=== PATIENT | female | born 1985 | race Caucasian/White ===

== ENCOUNTER 2016-06-02 13:08 | Emergency (ER) | payer OTHER, SELFPAY ==
--- NOTE | 2016-06-02 13:32 | ERPHSYRPT ---
- History of Present Illness Time Seen by Provider: 06/02/16 13:12 Source: patient Patient Subjective Stated Complaint: PT STATES THAT SHE THINKS HER LEFT LOWER WISDOM TOOTH IS COMING IN-REPROTS PAIN-REPORTS FEVER OF 100 YESTERDAY Triage Nursing Assessment: PT PINK WARM ET DRY-NO SWELLING OR REDNESS NOTED- DENTAL CARRIES NOTED-PT STATES SHE IS GETTING HER TEETH PULLED NEXT WEEK Physician History: CC: toothache Hx: 30 y/o patient with toothaches. She states she has not been on recent pain medication. She has left lower jaw wisdom tooth pain. She states she got Rx for pcn Thursday but stopped it because it did not help. She has APAP and motrin. No fever. States not . Scheduled to have full mouth dental extractions neck week at [facility]. Allergies/Adverse Reactions: Sulfa (Sulfonamide Antibiotics) Allergy (Intermediate, Verified 06/02/16 13:16) Swelling meperidine [From Demerol] Allergy (Verified 06/02/16 13:16) toradol Adverse Reaction (Uncoded 06/02/16 13:16) Home Medications: No Home Meds 1 ea MC UD 06/02/16 [History] Hx Tetanus, Diphtheria Vaccination/Date Given: Yes Hx Influenza Vaccination/Date Given: No Hx Pneumococcal Vaccination/Date Given: No Immunizations Up to Date: Yes - Review of Systems Constitutional: No Fever Ears, Nose, & Throat: Mouth Pain Respiratory: No Dyspnea Abdominal/Gastrointestinal: No Vomiting Skin: No Rash - Past Medical History Pertinent Past Medical History: Yes Neurological History: No Pertinent History ENT History: No Pertinent History Cardiac History: Hypertension Respiratory History: No Pertinent History Endocrine Medical History: No Pertinent History Musculoskeletal History: Other GI Medical History: No Pertinent History History: No Pertinent History Psycho-Social History: No Pertinent History Female Reproductive Disorders: No Pertinent History Other Medical History: intermittent Sciatic pain - Past Surgical History Past Surgical History: Yes Neuro Surgical History: No Pertinent History Cardiac: No Pertinent History Respiratory: No Pertinent History Gastrointestinal: Cholecystectomy Genitourinary: No Pertinent History Musculoskeletal: No Pertinent History Female Surgical History: No Pertinent History Other Surgical History: pt states pain worsened after gallbladder out - Social History Smoking Status: Former smoker How long have you smoked: 20 yrs Exposure to second hand smoke: Yes Drug Use: none Patient Lives Alone: No Significant Family History: no pertinent family hx - Female History Hx Last Menstrual Period: MAY 08 2016 Hx Now: No - Nursing Vital Signs Nursing Vital Signs: Initial Vital Signs Temperature 97.8 F Temperature Source Oral Pulse Rate 88 Respiratory Rate 22 Blood Pressure [Right Arm] 161/108 Pain Intensity 8 - Physical Exam General Appearance: alert Eye Exam: bilateral eye: PERRL, EOMI Throat Exam: pharynx normal Neck Exam: normal inspection, non-tender, supple Cardiovascular/Respiratory Exam: normal breath sounds, regular rate/rhythm Neurologic Exam: alert, oriented x 3, cooperative Skin Exam: warm, dry, No rash SpO2 Interpretation: normal SpO2: 100 Oxygen Delivery: Room Air Comments: Mouth: multiple tooth decay in various stages. Many teeth down to root tips. No large abscess. No trismus. No facial cellulitis. - Course Nursing assessment & vital signs reviewed: Yes - Progress Progress Note: 06/02/16 13:31 Pt denies any recent pain medications. She had dental appt scheduled. She is allergic to toradol. INSPECT reviewed and she has multiple opioids Rx from ER in past month of which she forgot to mention. The last was tramadol on 05-31. Explained to pt we can not refill opioids and she needs to follow up with the dentist. She declines APAP, vistaril, toradol here. Advised she take the pcn regularly and follow up with dentist. Counseled pt/family regarding: diagnosis, need for follow-up - Departure Time of Disposition: 13:32 Departure Disposition: Home Clinical Impression: Drug-seeking behavior, Toothache Condition: Stable Critical Care Time: No Referrals: DOCTOR,NO FAMILY [NON-STAFF PHY W/O PRIVILEGES] - Instructions: Tooth Decay Additional Instructions: Your blood pressure was elevated and you need to follow up with family doctor for recheck. Take your pcn as already prescribed. Call the dentist to arrange close follow up and further care. Take ibuprofen 600mg every 6 hours or tylenol 650mg every 6 hours as needed for pain.
[2016-06-02 13:39] VITALS: BP 160/100; PULSE 80; O2SAT 96
== END 2016-06-02 13:38 | disposition home or self-care (01) ==
LOC: ED 13:08
DX: Z76.5 Malingerer [conscious simulation] (principal); K08.89 Other specified disorders of teeth and supporting structures
CPT/HCPCS: 99281

== ENCOUNTER 2016-10-13 18:45 | Emergency (ER) | payer OTHER ==
[2016-10-13] MEDS ORDERED: Hydromorphone 1 mg/ml Ampule IV ONE ×2 (19:25→20:39)
[2016-10-13] MEDS ORDERED: Sodium Chloride 0.9% 1000 ML 1,000 ML IV STA (19:25)
[2016-10-13] MEDS ORDERED: Phenergan 25 MG INJ IV ONE (19:25)
--- NOTE | 2016-10-13 19:28 | ERPHSYRPT ---
- History of Present Illness Time Seen by Provider: 10/13/16 19:09 Historian: patient Exam Limitations: no limitations Patient Subjective Stated Complaint: abd pain started today, pain to center of abd nonradiating, nausea and vomiting x4, loose stools less than 10, no fever, Triage Nursing Assessment: pt walked in, resp easy, skin w/d pink , abd soft, alert Physician History: FOR THE PAST 7 HOURS PT HAS HAD CONSTANT SHARP/CRAMPY MID ABDOMINAL PAIN WITH CHILLS, DIARRHEA X8, NAUSEA AND VOMITING X3 WITHOUT BLOOD; FOR THE PAST 2 HOURS PT HAS HAD A FRONTAL HEADACHE. PT DENIES CHEST PAIN, SHORTNESS OF AIR, FEVER. PT DENIES ANY FOOD INTAKE TODAY. Allergies/Adverse Reactions: Sulfa (Sulfonamide Antibiotics) Allergy (Intermediate, Verified 10/13/16 19:14) Swelling meperidine [From Demerol] Allergy (Verified 10/13/16 19:14) toradol Adverse Reaction (Uncoded 10/13/16 19:14) Home Medications: No Home Meds [No Home Meds] 1 ea UD 06/02/16 [History] Hx Tetanus, Diphtheria Vaccination/Date Given: No Hx Influenza Vaccination/Date Given: No Hx Pneumococcal Vaccination/Date Given: No Immunizations Up to Date: Yes - Review of Systems Constitutional: Chills, No Fever Respiratory: No Dyspnea Cardiac: No Chest Pain Abdominal/Gastrointestinal: Abdominal Pain, Nausea, Vomiting, Diarrhea Neurological: Headache All Other Systems: Reviewed and Negative - Past Medical History Pertinent Past Medical History: Yes Neurological History: No Pertinent History ENT History: No Pertinent History Cardiac History: Hypertension Respiratory History: No Pertinent History Endocrine Medical History: No Pertinent History Musculoskeletal History: Other GI Medical History: No Pertinent History History: No Pertinent History Psycho-Social History: No Pertinent History Female Reproductive Disorders: No Pertinent History Other Medical History: intermittent Sciatic pain - Past Surgical History Past Surgical History: Yes Neuro Surgical History: No Pertinent History Cardiac: No Pertinent History Respiratory: No Pertinent History Gastrointestinal: Cholecystectomy Genitourinary: No Pertinent History Musculoskeletal: No Pertinent History Female Surgical History: No Pertinent History Other Surgical History: pt states pain worsened after gallbladder out - Social History Smoking Status: Never smoker How long have you smoked: 20 yrs Exposure to second hand smoke: Yes Drug Use: none Patient Lives Alone: No Significant Family History: no pertinent family hx - Female History Hx Last Menstrual Period: thursday Hx Now: No - Nursing Vital Signs Nursing Vital Signs: Initial Vital Signs Temperature 80 F 10/13/16 19:07 Pulse Rate 80 10/13/16 19:07 Respiratory Rate 20 10/13/16 19:07 Blood Pressure 115/74 10/13/16 19:07 O2 Sat by Pulse Oximetry 97 10/13/16 19:07 Pain Scale Pain Intensity 7 - Physical Exam General Appearance: alert Eye Exam: PERRL/EOMI Ears, Nose, Throat Exam: dry mucous membranes Neck Exam: normal inspection Respiratory Exam: lungs clear Cardiovascular Exam: normal heart sounds Gastrointestinal/Abdomen Exam: soft, tenderness (MILD MID ABDOMINAL TENDERNESS) , other (B.S. MILDLY HYPERACTIVE AND NORMOTONIC), No guarding Back Exam: normal range of motion Extremity Exam: normal inspection, No pedal edema Neurologic Exam: alert, cooperative Skin Exam: warm, dry SpO2 Interpretation: normal SpO2: 97 Oxygen Delivery: Room Air - Course Nursing assessment & vital signs reviewed: Yes - CT Exams Abdomen/Pelvis CT Interpretation: Discussed w/radiologist (COMPARED TO 10/25/13 NEW 3MM NONOBSTRUCTING LEFT RENAL STONE. NORMAL APPENDIX. TINY CUL-DE-SAC FLUID PRESUMED FROM RUPTURED/LEAKING CYST. 14 CM SPLENOMEGALY. MILD JEJUNUM WALL THICKENING, POSSIBLY ENTERITIS. REMAINING ABD/PEL NEGATIVE.) Ordered Tests: Active Orders 24 hr Category Date Time Status Clean Catch Urine Specimen STAT Care 10/13/16 19:25 Active IV Insertion STAT Care 10/13/16 19:25 Active ABDOMEN AND PELVIS W/0 CONTRAS [CT] Stat Exams 10/13/16 19:26 Taken AMYLASE Stat Lab 10/13/16 19:30 Completed BLOOD CULTURE Stat Lab 10/13/16 20:36 Ordered CBC W DIFF Stat Lab 10/13/16 19:30 Completed CMP Stat Lab 10/13/16 19:30 Completed CULTURE,URINE Stat Lab 10/13/16 19:30 Received HCG QUALITATIVE,SERUM Stat Lab 10/13/16 19:30 Completed LIPASE Stat Lab 10/13/16 19:30 Completed MAG [MAGNESIUM] Stat Lab 10/13/16 19:30 Completed UA W/ MICROSCOPIC Stat Lab 10/13/16 19:30 Completed Urine Triage Profile Stat Lab 10/13/16 19:30 Completed Medication Summary Discontinued Medications Generic Name Dose Route Start Last Admin Trade Name Freq PRN Reason Stop Dose Admin Hydromorphone HCl 1 mg 10/13/16 19:25 10/13/16 19:37 Hydromorphone 1 Mg/Ml Ampule IV 10/13/16 19:26 1 mg STAT ONE Administration Hydromorphone HCl Confirm 10/13/16 19:31 Hydromorphone 1 Mg/Ml Ampule Administered 10/13/16 19:32 Dose 1 mg .ROUTE .STK-MED ONE Sodium Chloride 1,000 mls @ 999 mls/hr 10/13/16 19:25 10/13/16 19:34 Sodium Chloride 0.9% 1000 Ml IV 10/13/16 20:25 999 mls/hr .Q1H1M STA Administration Sodium Chloride Confirm 10/13/16 19:31 Sodium Chloride 0.9% 1000 Ml Administered 10/13/16 19:32 Dose 1,000 mls @ ud .ROUTE .STK-MED ONE Promethazine HCl 12.5 mg 10/13/16 19:25 10/13/16 19:35 Phenergan 25 Mg Inj IV 10/13/16 19:26 12.5 mg STAT ONE Administration Promethazine HCl Confirm 10/13/16 19:30 Phenergan 25 Mg Inj Administered 10/13/16 19:31 Dose 25 mg .ROUTE .STK-MED ONE Lab/Rad Data: Laboratory Result Diagrams 10/13/16 19:30 10/13/16 19:30 Laboratory Results 10/13/16 10/13/16 10/13/16 Range/Units 19:30 19:30 19:30 WBC (4.0-10.5) K/mm3 RBC (4.1-5.4) M/mm3 Hgb (12.0-16.0) gm/dl Hct (35-47) % MCV (78-100) fl MCH (26-32) pg MCHC (32-36) g/dl RDW (11.5-14.0) % Plt Count (150-450) K/mm3 MPV (6-9.5) fl Gran % (36.0-66.0) % Lymphocytes % (24.0-44.0) % Monocytes % (0.0-12.0) % Eosinophils % (0.00-5.0) % Basophils % (0.0-0.4) % Basophils # (0-0.4) Sodium 140 (136-145) mEq/L Potassium 4.1 (3.5-5.1) mEq/L Chloride 103 (98-107) mEq/L Carbon Dioxide 25.4 (21-32) mEq/L Anion Gap 15.9 H (5-15) MEQ/L BUN 11 (9-20) mg/dL Creatinine 0.74 (0.55-1.30) mg/dl Estimated GFR > 60 ML/MIN Glucose 108 (70-110) MG/DL Calcium 9.7 (8.5-10.1) mg/dL Magnesium 2.3 (1.8-2.4) mg/dL Total Bilirubin 0.10 L (0.2-1.0) mg/dL AST 11 L (15-37) U/L ALT 18 (12-78) U/L Alkaline Phosphatase 133 H (46-116) U/L Serum Total Protein 9.0 H (6.4-8.2) gm/dL Albumin 4.4 (3.4-5.0) g/dL Amylase 49 (25-115) U/L Lipase 134 (73-393) U/L Serum , Qual NEGATIVE (Negative) Ur Collection Type Urine Color (YELLOW) Urine Appearance (CLEAR) Urine pH (5-6) Ur Specific [place] (1.005-1.025) Urine Protein (Negative) Urine Ketones (NEGATIVE) Urine Blood (0-5) [place]/ul Urine Nitrite (NEGATIVE) Urine Bilirubin (NEGATIVE) Urine Urobilinogen (0-1) mg/dL Ur Leukocyte Esterase (NEGATIVE) Urine Microscopic RBC (0-2) /HPF Urine Microscopic WBC (0-5) /HPF Ur Epithelial Cells (FEW) /HPF Amorphous Crystals (NEGATIVE) /HPF Urine Bacteria (NEGATIVE) /HPF Urine Glucose (NEGATIVE) mg/dL Urine Opiates Level (NEGATIVE) Ur Methadone (NEGATIVE) Urine Barbiturates (NEGATIVE) Ur Phencyclidine (PCP) (NEGATIVE) Urine Amphetamine (NEGATIVE) U Benzodiazepine Level (NEGATIVE) Urine Cocaine (NEGATIVE) Urine Marijuana (THC) (NEGATIVE) Specimen Received 10/13/16 10/13/16 10/13/16 Range/Units 19:30 19:30 19:30 WBC 14.0 H (4.0-10.5) K/mm3 RBC 4.32 (4.1-5.4) M/mm3 Hgb 11.4 L (12.0-16.0) gm/dl Hct 36.6 (35-47) % MCV 84.7 (78-100) fl MCH 26.3 (26-32) pg MCHC 31.1 L (32-36) g/dl RDW 16.4 H (11.5-14.0) % Plt Count 266 (150-450) K/mm3 MPV 11.7 H (6-9.5) fl Gran % 73.1 H (36.0-66.0) % Lymphocytes % 19.9 L (24.0-44.0) % Monocytes % 4.9 (0.0-12.0) % Eosinophils % 2.0 (0.00-5.0) % Basophils % 0.1 (0.0-0.4) % Basophils # 0.02 (0-0.4) Sodium (136-145) mEq/L Potassium (3.5-5.1) mEq/L Chloride (98-107) mEq/L Carbon Dioxide (21-32) mEq/L Anion Gap (5-15) MEQ/L BUN (9-20) mg/dL Creatinine (0.55-1.30) mg/dl Estimated GFR ML/MIN Glucose (70-110) MG/DL Calcium (8.5-10.1) mg/dL Magnesium (1.8-2.4) mg/dL Total Bilirubin (0.2-1.0) mg/dL AST (15-37) U/L ALT (12-78) U/L Alkaline Phosphatase (46-116) U/L Serum Total Protein (6.4-8.2) gm/dL Albumin (3.4-5.0) g/dL Amylase (25-115) U/L Lipase (73-393) U/L Serum , Qual (Negative) Ur Collection Type CLEAN CATCH Urine Color YELLOW (YELLOW) Urine Appearance CLOUDY (CLEAR) Urine pH 7.0 (5-6) Ur Specific [place] 1.010 (1.005-1.025) Urine Protein TRACE (Negative) Urine Ketones NEGATIVE (NEGATIVE) Urine Blood NEGATIVE (0-5) [place]/ul Urine Nitrite NEGATIVE (NEGATIVE) Urine Bilirubin NEGATIVE (NEGATIVE) Urine Urobilinogen NORMAL (0-1) mg/dL Ur Leukocyte Esterase 1+ (NEGATIVE) Urine Microscopic RBC 0-2 (0-2) /HPF Urine Microscopic WBC 5-10 (0-5) /HPF Ur Epithelial Cells MODERATE (FEW) /HPF Amorphous Crystals MODERATE (NEGATIVE) /HPF Urine Bacteria FEW (NEGATIVE) /HPF Urine Glucose NEGATIVE (NEGATIVE) mg/dL Urine Opiates Level NEG. (NEGATIVE) Ur Methadone NEG. (NEGATIVE) Urine Barbiturates NEG. (NEGATIVE) Ur Phencyclidine (PCP) NEG. (NEGATIVE) Urine Amphetamine NEG. (NEGATIVE) U Benzodiazepine Level NEG. (NEGATIVE) Urine Cocaine NEG. (NEGATIVE) Urine Marijuana (THC) NEG. (NEGATIVE) Specimen Received 10/13/161944 - Departure Time of Disposition: 20:38 Departure Disposition: Home Clinical Impression: ABDOMINAL PAIN, UTI, VOMITING, DIARRHEA, HTN Condition: Stable Critical Care Time: No Referrals: DOCTOR,NO FAMILY [Primary Care Provider] - Instructions: Abdominal Pain-Adult, Diarrhea and Traveler's Diarrhea -- Adult, Vomiting -- Adult, Urinary Tract Infection (UTI) Additional Instructions: FOLLOW UP WITH PRIVATE DOCTOR TOMORROW. Prescriptions: Ondansetron [Zofran Odt] 4 mg PO Q4H PRN PRN #14 tab.rapdis PRN Reason: Nausea/Vomiting Nitrofurantoin Macro 100 mg [Macrobid 100MG Capsule] 100 mg PO BID #20 capsule
[2016-10-13] MEDS ORDERED: Phenergan 25 MG INJ ONE (19:30)
[2016-10-13] MEDS ORDERED: Sodium Chloride 0.9% 1000 ML 1,000 ML ONE (19:31)
[2016-10-13] MEDS ORDERED: Hydromorphone 1 mg/ml Ampule ONE ×2 (19:31→20:43)
[2016-10-13 19:33] LABS: BASOPHIL % 0.1 % (0.0-0.4); Granulocytes % 73.1 % (36.0-66.0); Lymphocytes % 19.9 % (24.0-44.0); Mean Cell Volume 84.7 fl (78-100); Mean Platelet Volume 11.7 fl (6-9.5); Monocytes % 4.9 % (0.0-12.0); Platelet Count 266 K/mm3 (150-450); Red Blood Count 4.32 M/mm3 (4.1-5.4); Red Cell Distribution Width 16.4 % (11.5-14.0)
[2016-10-13 19:52] LABS: ALBUMIN 4.4 g/dL (3.4-5.0); ALKALINE PHOSPHATASE 133 U/L (46-116); ANION GAP 15.9 MEQ/L (5-15); BLOOD UREA NITROGEN 11 mg/dL (9-20); CHLORIDE 103 mEq/L (98-107); Carbon Dioxide 25.4 mEq/L (21-32); Glucose 108 MG/DL (70-110); LIPASE 134 U/L (73-393); Potassium 4.1 mEq/L (3.5-5.1); SGOT/AST 11 U/L (15-37); SGPT/ALT 18 U/L (12-78); SODIUM 140 mEq/L (136-145)
[2016-10-13 19:56] LABS: Mean Corpuscular Hemoglobin 26.3 pg (26-32)
[2016-10-13 20:32] LABS: Bilirubin NEGATIVE (NEGATIVE); Blood NEGATIVE Ery/ul (0-5); COMPLETE URINE MICROSCOPIC? YES; Collection Type CLEAN CATCH; Glucose NEGATIVE (NEGATIVE); Leukocyte Esterase 1+ (NEGATIVE)
[2016-10-13 20:33] LABS: ADD URINE CULTURE? YES (NO); Bacteria FEW /HPF (NEGATIVE); Epithelial Cells MODERATE /HPF (FEW)
[2016-10-13] MEDS ORDERED: ROCEPHIN 1 Gm-D5w 50 ml Bag** 1 G/50 ML IVPB IV STA (20:36)
[2016-10-13] MEDS ORDERED: Zofran 4 MG/2 ML VIAL IV ONE (20:39)
[2016-10-13] MEDS ORDERED: ROCEPHIN 1 Gm-D5w 50 ml Bag** 1 G/50 ML IVPB IV ONE (20:40)
[2016-10-13] MEDS ORDERED: Zofran 4 MG/2 ML VIAL ONE (20:43)
[2016-10-13 21:40] VITALS: BP 132/72; PULSE 80; O2SAT 98
--- NOTE | 2016-10-14 08:36 | XRAY ---
Indication: Mid abdominal pain. Multiple contiguous axial images obtained through the abdomen and pelvis without contrast as ordered. Comparison: October 25, 2013. Lung bases demonstrates minimal bibasilar dependent atelectasis. Heart is not enlarged. Stomach is mildly distended with food/fluid. Noncontrasted bowel loops appear nonobstructed. Left mid abdomen jejunal bowel loops now mildly fluid distended with wall thickening possibly enteritis. Normal appendix. Tiny cul-de-sac fluid presumed from ruptured/leaking cyst. Spleen remains enlarged measuring 14 cm in greatest axial dimension. There is a 3-4 mm nonobstructing left renal micro-calculus. Again previous cholecystectomy. Remaining liver, pancreas, spleen, adrenal glands, kidneys, ureters, bladder, uterus, and aorta appear unremarkable for noncontrast exam. Osseous structures intact. Impression: 1. Jejunal bowel wall thickening. Rule out enteritis. 2. Nonobstructing left renal micro-calculus. 3. Tiny cul-de-sac fluid presumed from ruptured/leaking cyst. 4. Splenomegaly. CT DI 20.11
== END 2016-10-13 21:40 | disposition home or self-care (01) ==
LOC: ED 18:45
DX: R10.9 Unspecified abdominal pain (principal); N39.0 Urinary tract infection, site not specified; R11.10 Vomiting, unspecified; R11.2 Nausea with vomiting, unspecified; R19.7 Diarrhea, unspecified; I10 Essential (primary) hypertension
CPT/HCPCS: 36000; 36415; 74176; 80053; 80307; 81000; 82150; 83690; 83735; 84703; 85025; 87040; 87086; 96374; 96375; 96376; 99283; 99284; J0696; J1170; J2405; J2550

== ENCOUNTER 2017-09-14 10:04 | Emergency (ER) | payer OTHER ==
[2017-09-14] MEDS ORDERED: Sodium Chloride 0.9% 1000 ML 1,000 ML IV STA (10:26)
[2017-09-14] MEDS ORDERED: Sodium Chloride 0.9% 1000 ML 1,000 ML ONE (10:29)
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
[2017-09-14 11:01] LABS: BASOPHIL % 0.1 % (0.0-0.4); Basophil (Absolute #) 0.01 (0-0.4); Eosinophil % 3.2 % (0.00-5.0); Eosinophil (Absolute #) 0.26 (0-0.5); Granulocyte Absolute (ANC) 5.82 (1.4-6.9); Granulocytes % 71.7 % (36.0-66.0); Hematocrit 32.6 % (35-47); Hemoglobin 10.2 gm/dl (12.0-16.0); Lymphocyte (Absolute #) 1.51 (1.0-4.6); Lymphocytes % 18.6 % (24.0-44.0); Mean Cell Volume 80.7 fl (78-100); Mean Corpuscular Hemoglobin 25.2 pg (26-32); Mean Corpuscular Hgb Concent. 31.3 g/dl (32-36); Mean Platelet Volume 11.9 fl (6-9.5); Monocyte (Absolute #) 0.52 (0.0-1.3); Monocytes % 6.4 % (0.0-12.0); Platelet Count 228 K/mm3 (150-450); Red Blood Count 4.04 M/mm3 (4.1-5.4); Red Cell Distribution Width 17.1 % (11.5-14.0); White Blood Count 8.1 K/mm3 (4.0-10.5)
[2017-09-14 11:13] LABS: ALBUMIN 4.7 g/dL (3.5-5.0); ALKALINE PHOSPHATASE 136 U/L (38-126); ANION GAP 19.9 MEQ/L (5-15); BLOOD UREA NITROGEN 15 mg/dL (7-17); CHLORIDE 108 mmol/L (98-107); Calcium 9.3 mg/dL (8.4-10.2); Carbon Dioxide 20 mmol/L (22-30); Creatinine 1 0.52 mg/dL (0.52-1.04); Glucose 108 mg/dL (74-106); Potassium 3.9 mmol/L (3.5-5.1); SGOT/AST 22 U/L (14-36); SGPT/ALT 17 U/L (0-35); SODIUM 144 mmol/L (137-145); Total Protein 8.3 g/dL (6.3-8.2)
[2017-09-14 11:45] VITALS: BP 155/108; PULSE 99; O2SAT 99
== END 2017-09-14 11:51 | disposition home or self-care (01) ==
LOC: ED 10:04
DX: F41.9 Anxiety disorder, unspecified (principal); R06.4 Hyperventilation; M79.602 Pain in left arm; R00.2 Palpitations
CPT/HCPCS: 36000; 36415; 80053; 83735; 84484; 84703; 85025; 93005; 93041; 96360; 99284

== ENCOUNTER 2017-11-17 23:54 | Emergency (ER) | payer OTHER ==
--- NOTE | 2017-11-18 00:17 | ERPHSYRPT ---
- History of Present Illness Source: patient Exam Limitations: no limitations Patient Subjective Stated Complaint: Patient stated she got into the shower and noticed pus oozing out of every poor in her body. Upon assessment no open areas or pus noted from anywhere on patient's body. Triage Nursing Assessment: Patient brought back to ER via W/C. Patient stated she got into the shower and noticed pus oozing out of every poor in her body. Upon assessment no open areas or pus noted from anywhere on patient's body. Patient's constantly moving and scratching at self. Patient denies pain or discomfort. Timing/Duration: hour(s) (0.5) Severity of Symptoms-Max: severe Severity of Symptoms-Current: severe Suicidal thoughts: other (denies) Associated Symptoms: denies symptoms Previous symptoms: no prior history Hx Tetanus, Diphtheria Vaccination/Date Given: Yes Hx Influenza Vaccination/Date Given: No Hx Pneumococcal Vaccination/Date Given: No Immunizations Up to Date: Yes <MARI PATIÑO - Last Filed: 11/18/17 07:02> <MICKEY HOLCOMB - Last Filed: 11/18/17 10:07> - History of Present Illness Time Seen by Provider: 11/18/17 00:08 Physician History: Pt states, she noticed oozing skin lesions all over her body after stepping out of shower about half hour ago. She denies any pain, fever, injury, vomiting or other complaints. (MARI PATIÑO) Allergies/Adverse Reactions: Sulfa (Sulfonamide Antibiotics) Allergy (Intermediate, Verified 11/18/17 00:10) Swelling meperidine [From Demerol] Allergy (Verified 11/18/17 00:10) toradol Adverse Reaction (Intermediate, Uncoded 11/18/17 00:10) Home Medications: Buprenorphine HCl/Naloxone HCl [Suboxone 8 mg-2 mg Tablet Sl] 1 each SL DAILY [History] Diphenhydramine HCl [Benadryl] 25 mg PO BID 09/14/17 [History] - Past Medical History Pertinent Past Medical History: Yes Neurological History: No Pertinent History ENT History: No Pertinent History Cardiac History: Hypertension Respiratory History: No Pertinent History Endocrine Medical History: No Pertinent History Musculoskeletal History: Other GI Medical History: No Pertinent History History: No Pertinent History Psycho-Social History: Anxiety Female Reproductive Disorders: No Pertinent History Other Medical History: intermittent Sciatic pain - Past Surgical History Past Surgical History: Yes Neuro Surgical History: No Pertinent History Cardiac: No Pertinent History Respiratory: No Pertinent History Gastrointestinal: Cholecystectomy Genitourinary: No Pertinent History Musculoskeletal: No Pertinent History Female Surgical History: No Pertinent History Other Surgical History: pt states pain worsened after gallbladder out - Social History Smoking Status: Current every day smoker How long have you smoked: 1 Exposure to second hand smoke: Yes Drug Use: none Patient Lives Alone: No Significant Family History: no pertinent family hx - Female History Hx Last Menstrual Period: 10/20/17 Hx Now: No <MARI PATIÑO Filed: 11/18/17 07:02> - Review of Systems Constitutional: No Symptoms Skin: Pruritis, Other (skin lesions) All Other Systems: Reviewed and Negative <MARI PTAIÑO Filed: 11/18/17 07:02> - Physical Exam General Appearance: no apparent distress Eyes, Ears, Nose, Throat Exam: normal ENT inspection, moist mucous membranes Neck Exam: normal inspection, non-tender, supple, No JVD Respiratory Exam: normal breath sounds, lungs clear, airway intact, No chest tenderness, No respiratory distress Cardiovascular Exam: regular rate/rhythm, normal heart sounds, normal peripheral pulses, No murmur Gastrointestinal/Abdominal Exam: soft, normal bowel sounds, No tenderness Extremities Exam: normal inspection Neurological Exam: alert, calm, oriented x 3 Appearance: appropriate appearance, impaired insight Behavior/Eye Contact/Speech: alert & cooperative, normal speech Thoughts/Hallucinations: tactile hallucinations Skin Exam: normal color, warm, dry, other (there is one solitary 1-1.5 cm superficial ulcerated skin lesion under the right breast, no erythema, no abscess, purulent discharge, blisters or other lesions seen.), No rash, No petechiae SpO2 Interpretation: normal SpO2: 100 Oxygen Delivery: Room Air <MARI PATIÑO Filed: 11/18/17 07:02> - Nursing Vital Signs Nursing Vital Signs: Initial Vital Signs Temperature 99.2 F 11/18/17 00:00 Pulse Rate 126 H 11/18/17 00:00 Respiratory Rate 22 11/18/17 00:00 Blood Pressure 144/107 11/18/17 00:00 O2 Sat by Pulse Oximetry 100 11/18/17 00:00 Pain Scale Pain Intensity 0 - Course Nursing assessment & vital signs reviewed: Yes EKG Interpreted by Me: RATE (114/min), Sinus Tach, Left Calera Deviation, Non- specific ST Changes <MARI PATIÑO - Last Filed: 11/18/17 07:02> Ordered Tests: Active Orders 24 hr Category Date Time Status EKG-ER Only STAT Care 11/18/17 00:11 Active Regular Diet Diet 11/18/17 Lunch Active ACETAMINOPHEN Stat Lab 11/18/17 00:45 Completed CBC W DIFF Stat Lab 11/18/17 00:45 Completed CMP Stat Lab 11/18/17 00:45 Completed CULTURE,URINE Stat Lab 11/18/17 02:11 Received ETHYL ALCOHOL Stat Lab 11/18/17 00:45 Completed HCG QUALITATIVE,SERUM Stat Lab 11/18/17 00:45 Completed PROTIME WITH INR Stat Lab 11/18/17 00:45 Completed SALICYLATE Stat Lab 11/18/17 00:45 Completed TSH [TSH, 3RD Generation] Stat Lab 11/18/17 00:45 Completed UA W/RFX UR CULTURE Stat Lab 11/18/17 02:11 Completed Urine Triage Profile Stat Lab 11/18/17 02:11 Completed Medication Summary Discontinued Medications Generic Name Dose Route Start Last Admin Trade Name Freq PRN Reason Stop Dose Admin Cephalexin HCl 500 mg 11/18/17 03:12 11/18/17 03:19 Keflex 500 Mg PO 11/18/17 03:13 500 mg STAT ONE Administration Cephalexin HCl Confirm 11/18/17 03:18 Keflex 500 Mg Administered 11/18/17 03:19 Dose 500 mg .ROUTE .STK-MED ONE Lab/Rad Data: Laboratory Result Diagrams 11/18/17 00:45 11/18/17 00:45 Laboratory Results 11/18/17 11/18/17 11/18/17 Range/Units 02:11 02:11 00:45 WBC (4.0-10.5) K/mm3 RBC (4.1-5.4) M/mm3 Hgb (12.0-16.0) gm/dl Hct (35-47) % MCV (78-100) fl MCH (26-32) pg MCHC (32-36) g/dl RDW (11.5-14.0) % Plt Count (150-450) K/mm3 MPV (6-9.5) fl Gran % (36.0-66.0) % Eos # (Auto) (0-0.5) Absolute Lymphs (auto) (1.0-4.6) Absolute Monos (auto) (0.0-1.3) Lymphocytes % (24.0-44.0) % Monocytes % (0.0-12.0) % Eosinophils % (0.00-5.0) % Basophils % (0.0-0.4) % Absolute Granulocytes (1.4-6.9) Basophils # (0-0.4) PT (9.95-12.35) SECONDS INR (0.8-3.0) Sodium (137-145) mmol/L Potassium (3.5-5.1) mmol/L Chloride (98-107) mmol/L Carbon Dioxide (22-30) mmol/L Anion Gap (5-15) MEQ/L BUN (7-17) mg/dL Creatinine (0.52-1.04) mg/dL Estimated GFR ML/MIN Glucose (74-106) mg/dL Calcium (8.4-10.2) mg/dL Total Bilirubin (0.2-1.3) mg/dL AST (14-36) U/L ALT (0-35) U/L Alkaline Phosphatase (38-126) U/L Serum Total Protein (6.3-8.2) g/dL Albumin (3.5-5.0) g/dL TSH 3rd Generation 1.480 (0.47-4.68) mIU/L Serum , Qual (Negative) Urine Color YELLOW (YELLOW) Urine Appearance SLIGHTLY CLOUDY (CLEAR) Urine pH 5.0 (5-6) Ur Specific Moran 1.026 (1.005-1.025) Urine Protein 30 (Negative) Urine Ketones TRACE (NEGATIVE) Urine Blood NEGATIVE (0-5) Juan Pablo/ul Urine Nitrite NEGATIVE (NEGATIVE) Urine Bilirubin NEGATIVE (NEGATIVE) Urine Urobilinogen 2 (0-1) mg/dL Ur Leukocyte Esterase LARGE (NEGATIVE) Urine WBC (Auto) >100 (0-5) /HPF Urine RBC (Auto) 16-25 (0-2) /HPF U Hyaline Cast (Auto) 0-2 (0-2) /LPF U Epithel Cells (Auto) FEW (FEW) /HPF Urine Bacteria (Auto) RARE (NEGATIVE) /HPF Unidentified Crystals 2-5 (NEGATIVE) /HPF Urine Mucus (Auto) MODERATE (NEGATIVE) /HPF Urine Culture Reflexed YES (NO) Urine Glucose NEGATIVE (NEGATIVE) mg/dL Salicylates (2-20) mg/dL Urine Opiates Level NEGATIVE (NEGATIVE) Ur Methadone NEGATIVE (NEGATIVE) Acetaminophen (10-30) ug/ml Urine Barbiturates NEGATIVE (NEGATIVE) Ur Phencyclidine (PCP) NEGATIVE (NEGATIVE) Urine Amphetamine POSITIVE (NEGATIVE) U Benzodiazepine Level NEGATIVE (NEGATIVE) Urine Cocaine NEGATIVE (NEGATIVE) Urine Marijuana (THC) NEGATIVE (NEGATIVE) Ethyl Alcohol (0-10) mg/dL 11/18/17 11/18/17 11/18/17 Range/Units 00:45 00:45 00:45 WBC (4.0-10.5) K/mm3 RBC (4.1-5.4) M/mm3 Hgb (12.0-16.0) gm/dl Hct (35-47) % MCV (78-100) fl MCH (26-32) pg MCHC (32-36) g/dl RDW (11.5-14.0) % Plt Count (150-450) K/mm3 MPV (6-9.5) fl Gran % (36.0-66.0) % Eos # (Auto) (0-0.5) Absolute Lymphs (auto) (1.0-4.6) Absolute Monos (auto) (0.0-1.3) Lymphocytes % (24.0-44.0) % Monocytes % (0.0-12.0) % Eosinophils % (0.00-5.0) % Basophils % (0.0-0.4) % Absolute Granulocytes (1.4-6.9) Basophils # (0-0.4) PT 13.3 H (9.95-12.35) SECONDS INR 1.14 (0.8-3.0) Sodium 140 (137-145) mmol/L Potassium 3.7 (3.5-5.1) mmol/L Chloride 103 (98-107) mmol/L Carbon Dioxide 25 (22-30) mmol/L Anion Gap 15.2 H (5-15) MEQ/L BUN 12 (7-17) mg/dL Creatinine 0.57 (0.52-1.04) mg/dL Estimated GFR > 60.0 ML/MIN Glucose 110 H (74-106) mg/dL Calcium 9.6 (8.4-10.2) mg/dL Total Bilirubin 0.50 (0.2-1.3) mg/dL AST 45 H (14-36) U/L ALT 34 (0-35) U/L Alkaline Phosphatase 136 H (38-126) U/L Serum Total Protein 8.9 H (6.3-8.2) g/dL Albumin 5.0 (3.5-5.0) g/dL TSH 3rd Generation (0.47-4.68) mIU/L Serum , Qual NEGATIVE (Negative) Urine Color (YELLOW) Urine Appearance (CLEAR) Urine pH (5-6) Ur Specific Moran (1.005-1.025) Urine Protein (Negative) Urine Ketones (NEGATIVE) Urine Blood (0-5) Juan Pablo/ul Urine Nitrite (NEGATIVE) Urine Bilirubin (NEGATIVE) Urine Urobilinogen (0-1) mg/dL Ur Leukocyte Esterase (NEGATIVE) Urine WBC (Auto) (0-5) /HPF Urine RBC (Auto) (0-2) /HPF U Hyaline Cast (Auto) (0-2) /LPF U Epithel Cells (Auto) (FEW) /HPF Urine Bacteria (Auto) (NEGATIVE) /HPF Unidentified Crystals (NEGATIVE) /HPF Urine Mucus (Auto) (NEGATIVE) /HPF Urine Culture Reflexed (NO) Urine Glucose (NEGATIVE) mg/dL Salicylates < 1.0 L (2-20) mg/dL Urine Opiates Level (NEGATIVE) Ur Methadone (NEGATIVE) Acetaminophen < 10 L (10-30) ug/ml Urine Barbiturates (NEGATIVE) Ur Phencyclidine (PCP) (NEGATIVE) Urine Amphetamine (NEGATIVE) U Benzodiazepine Level (NEGATIVE) Urine Cocaine (NEGATIVE) Urine Marijuana (THC) (NEGATIVE) Ethyl Alcohol < 10 (0-10) mg/dL 11/18/17 Range/Units 00:45 WBC 12.6 H (4.0-10.5) K/mm3 RBC 4.13 (4.1-5.4) M/mm3 Hgb 10.0 L (12.0-16.0) gm/dl Hct 31.6 L (35-47) % MCV 76.5 L (78-100) fl MCH 24.2 L (26-32) pg MCHC 31.6 L (32-36) g/dl RDW 17.5 H (11.5-14.0) % Plt Count 256 (150-450) K/mm3 MPV 11.0 H (6-9.5) fl Gran % 83.2 H (36.0-66.0) % Eos # (Auto) 0.14 (0-0.5) Absolute Lymphs (auto) 1.29 (1.0-4.6) Absolute Monos (auto) 0.68 (0.0-1.3) Lymphocytes % 10.2 L (24.0-44.0) % Monocytes % 5.4 (0.0-12.0) % Eosinophils % 1.1 (0.00-5.0) % Basophils % 0.1 (0.0-0.4) % Absolute Granulocytes 10.47 H (1.4-6.9) Basophils # 0.01 (0-0.4) PT (9.95-12.35) SECONDS INR (0.8-3.0) Sodium (137-145) mmol/L Potassium (3.5-5.1) mmol/L Chloride (98-107) mmol/L Carbon Dioxide (22-30) mmol/L Anion Gap (5-15) MEQ/L BUN (7-17) mg/dL Creatinine (0.52-1.04) mg/dL Estimated GFR ML/MIN Glucose (74-106) mg/dL Calcium (8.4-10.2) mg/dL Total Bilirubin (0.2-1.3) mg/dL AST (14-36) U/L ALT (0-35) U/L Alkaline Phosphatase (38-126) U/L Serum Total Protein (6.3-8.2) g/dL Albumin (3.5-5.0) g/dL TSH 3rd Generation (0.47-4.68) mIU/L Serum , Qual (Negative) Urine Color (YELLOW) Urine Appearance (CLEAR) Urine pH (5-6) Ur Specific Moran (1.005-1.025) Urine Protein (Negative) Urine Ketones (NEGATIVE) Urine Blood (0-5) Juan Pablo/ul Urine Nitrite (NEGATIVE) Urine Bilirubin (NEGATIVE) Urine Urobilinogen (0-1) mg/dL Ur Leukocyte Esterase (NEGATIVE) Urine WBC (Auto) (0-5) /HPF Urine RBC (Auto) (0-2) /HPF U Hyaline Cast (Auto) (0-2) /LPF U Epithel Cells (Auto) (FEW) /HPF Urine Bacteria (Auto) (NEGATIVE) /HPF Unidentified Crystals (NEGATIVE) /HPF Urine Mucus (Auto) (NEGATIVE) /HPF Urine Culture Reflexed (NO) Urine Glucose (NEGATIVE) mg/dL Salicylates (2-20) mg/dL Urine Opiates Level (NEGATIVE) Ur Methadone (NEGATIVE) Acetaminophen (10-30) ug/ml Urine Barbiturates (NEGATIVE) Ur Phencyclidine (PCP) (NEGATIVE) Urine Amphetamine (NEGATIVE) U Benzodiazepine Level (NEGATIVE) Urine Cocaine (NEGATIVE) Urine Marijuana (THC) (NEGATIVE) Ethyl Alcohol (0-10) mg/dL - Progress Progress: unchanged <MARI PATIÑO - Last Filed: 11/18/17 07:02> - Progress Counseled pt/family regarding: diagnosis, need for follow-up <MICKEY HOLCOMB - Last Filed: 11/18/17 10:07> - Progress Progress Note: 11/18/17 03:15 Pt has been stable, afebrile, calm, she is medically stable for Psychiatric evaluation. (MARI PATIÑO) 11/18/17 07:47 Pt care discussed and care accepted from Dr Magana at 07:00. 11/18/17 10:02 [facility] completes psychiatric evaluation and recommends out pt treatment. (MICKEY HOLCOMB) - Departure Critical Care Time: No <MARI PATIÑO - Last Filed: 11/18/17 07:02> - Departure Time of Disposition: 10:04 Departure Disposition: Home Critical Care Time: No <MICKEY HOLCOMB - Last Filed: 11/18/17 10:07> - Departure Clinical Impression: Hallucinations, Drug abuse UTI (urinary tract infection) Qualifiers: Urinary tract infection type: site unspecified Hematuria presence: without hematuria Qualified Code(s): N39.0 - Urinary tract infection, site not specified Cellulitis Qualifiers: Site of cellulitis: trunk Site of cellulitis of trunk: chest wall Qualified Code(s): L03.313 - Cellulitis of chest wall Condition: Stable Referrals: DOCTOR,NO FAMILY [Primary Care Provider] - Instructions: Urinary Tract Infection, Adult (DC), Cellulitis (Skin Infection) , Adult (DC) Prescriptions: Cephalexin [Keflex] 500 mg PO QID #28 capsule
[2017-11-18 01:05] LABS: BASOPHIL % 0.1 % (0.0-0.4); Basophil (Absolute #) 0.01 (0-0.4); Eosinophil % 1.1 % (0.00-5.0); Eosinophil (Absolute #) 0.14 (0-0.5); Granulocyte Absolute (ANC) 10.47 (1.4-6.9); Granulocytes % 83.2 % (36.0-66.0); Hematocrit 31.6 % (35-47); Lymphocyte (Absolute #) 1.29 (1.0-4.6); Lymphocytes % 10.2 % (24.0-44.0); Mean Cell Volume 76.5 fl (78-100); Mean Corpuscular Hemoglobin 24.2 pg (26-32); Mean Corpuscular Hgb Concent. 31.6 g/dl (32-36); Monocyte (Absolute #) 0.68 (0.0-1.3); Monocytes % 5.4 % (0.0-12.0); Platelet Count 256 K/mm3 (150-450); Red Blood Count 4.13 M/mm3 (4.1-5.4); Red Cell Distribution Width 17.5 % (11.5-14.0); White Blood Count 12.6 K/mm3 (4.0-10.5)
[2017-11-18 01:26] LABS: INR 1.14 (0.8-3.0)
[2017-11-18 01:31] LABS: ALKALINE PHOSPHATASE 136 U/L (38-126); ANION GAP 15.2 MEQ/L (5-15); BLOOD UREA NITROGEN 12 mg/dL (7-17); CHLORIDE 103 mmol/L (98-107); Calcium 9.6 mg/dL (8.4-10.2); Carbon Dioxide 25 mmol/L (22-30); Creatinine 1 0.57 mg/dL (0.52-1.04); Glucose 110 mg/dL (74-106); Potassium 3.7 mmol/L (3.5-5.1); SGOT/AST 45 U/L (14-36); SGPT/ALT 34 U/L (0-35); SODIUM 140 mmol/L (137-145); Total Protein 8.9 g/dL (6.3-8.2)
[2017-11-18 01:33] LABS: ACETAMINOPHEN < 10 ug/ml (10-30); ETHYL ALCOHOL < 10 mg/dL (0-10); SALICYLATE < 1.0 mg/dL (2-20)
[2017-11-18 02:32] LABS: Barbiturate,Urine NEGATIVE (NEGATIVE); Benzodiazepine,Urine NEGATIVE (NEGATIVE); Cocaine,Urine NEGATIVE (NEGATIVE); Methadone,Urine NEGATIVE (NEGATIVE); Opiate,Urine NEGATIVE (NEGATIVE); PCP,Urine NEGATIVE (NEGATIVE); THC,Urine NEGATIVE (NEGATIVE)
[2017-11-18 03:06] LABS: Appearance SLIGHTLY CLOUDY (CLEAR); Bilirubin NEGATIVE (NEGATIVE); Blood NEGATIVE Ery/ul (0-5); Glucose NEGATIVE (NEGATIVE); Ketones TRACE (NEGATIVE); Leukocyte Esterase LARGE (NEGATIVE); Nitrite NEGATIVE (NEGATIVE); Protein,Urine Dip 30 (Negative); Specific Gravity 1.026 (1.005-1.025); Urobilinogen 2 mg/dL (0-1)
[2017-11-18] MEDS ORDERED: KEFLEX 500 MG PO ONE (03:12)
[2017-11-18] MEDS ORDERED: KEFLEX 500 MG ONE (03:18)
[2017-11-18 03:44] LABS: Amphetamine,Urine POSITIVE (NEGATIVE)
[2017-11-18 09:06] VITALS: O2SAT 99
[2017-11-18 10:16] VITALS: BP 119/67; PULSE 69
== END 2017-11-18 11:00 | disposition home or self-care (01) ==
LOC: ED 23:54
DX: R44.3 Hallucinations, unspecified (principal); F19.10 Other psychoactive substance abuse, uncomplicated; N39.0 Urinary tract infection, site not specified; L03.313 Cellulitis of chest wall
CPT/HCPCS: 36415; 80053; 80307; 81001; 84443; 84703; 85025; 85610; 87086; 90791; 93005; 99284; G0481; Q3014; A9270-GY; G0480

== ENCOUNTER 2018-07-21 17:27 | Emergency (ER) | payer OTHER ==
[2018-07-21 18:14] LABS: BASOPHIL % 0.1 % (0.0-0.4); Basophil (Absolute #) 0.01 (0-0.4); Eosinophil % 1.4 % (0.00-5.0); Eosinophil (Absolute #) 0.15 (0-0.5); Granulocyte Absolute (ANC) 7.99 (1.4-6.9); Granulocytes % 77.1 % (36.0-66.0); Hematocrit 31.2 % (35-47); Hemoglobin 10.1 gm/dl (12.0-16.0); Lymphocyte (Absolute #) 1.78 (1.0-4.6); Lymphocytes % 17.1 % (24.0-44.0); Mean Corpuscular Hemoglobin 27.8 pg (26-32); Mean Corpuscular Hgb Concent. 32.4 g/dl (32-36); Mean Platelet Volume 11.6 fl (6-9.5); Monocyte (Absolute #) 0.45 (0.0-1.3); Monocytes % 4.3 % (0.0-12.0); Platelet Count 186 K/mm3 (150-450); Red Blood Count 3.63 M/mm3 (4.1-5.4); Red Cell Distribution Width 16.1 % (11.5-14.0); White Blood Count 10.4 K/mm3 (4.0-10.5)
[2018-07-21 18:19] LABS: ALBUMIN 4.1 g/dL (3.5-5.0); ALKALINE PHOSPHATASE 117 U/L (38-126); ANION GAP 15.1 MEQ/L (5-15); BLOOD UREA NITROGEN 7 mg/dL (7-17); CHLORIDE 103 mmol/L (98-107); Calcium 9.4 mg/dL (8.4-10.2); Carbon Dioxide 23 mmol/L (22-30); Creatinine 1 0.46 mg/dL (0.52-1.04); Glucose 103 mg/dL (74-106); Potassium 3.3 mmol/L (3.5-5.1); SGOT/AST 23 U/L (14-36); SGPT/ALT 21 U/L (0-35); SODIUM 138 mmol/L (137-145)
--- NOTE | 2018-07-21 18:40 | ERPHSYRPT ---
- History of Present Illness Time Seen by Provider: 07/21/18 18:24 Source: patient Exam Limitations: no limitations Patient Subjective Stated Complaint: pt here for high b/p about 30 mins ago, she did not take her b/p but states she is dizzy, tinglingflushed and feels like she is retainging water. pt is 19 weeks Triage Nursing Assessment: pt alert walked in, anxious,resp easy, skin w/d/p. no edma noted, pt denies abd pain or cramping Physician History: 32 y/o white female who is 19 weeks who presents with onset of dizziness and felt her heart racing. pt is on suboxone and has not missed any doses. pt thinks her bp is elevated. pt concerned about pre eclampsia. pt denies n/v/d, denies cp, denies soa, denies abd pain. denies vaginal bleeding. pt has anxiety and panic issues. pt denies any new stressors. pt denies taking any illicit drugs. Timing/Duration: today, sudden Severity: moderate Associated Symptoms: No nausea, No vomiting, No abdominal pain, No shortness of breath, No chest pain, No headaches Allergies/Adverse Reactions: Sulfa (Sulfonamide Antibiotics) Allergy (Intermediate, Verified 11/18/17 00:10) Swelling sulfamethoxazole [From Bactrim] Allergy (Verified 07/21/18 17:41) trimethoprim [From Bactrim] Allergy (Verified 07/21/18 17:41) toradol Adverse Reaction (Intermediate, Uncoded 11/18/17 00:10) Home Medications: Buprenorphine HCl/Naloxone HCl [Suboxone 8 mg-2 mg Tablet Sl] 2 each SL DAILY [History] Diphenhydramine HCl [Benadryl] 25 mg PO BID 09/14/17 [History] Hx Tetanus, Diphtheria Vaccination/Date Given: Yes Hx Influenza Vaccination/Date Given: No Hx Pneumococcal Vaccination/Date Given: No Immunizations Up to Date: Yes - Review of Systems Constitutional: No Symptoms Eyes: No Symptoms Ears, Nose, & Throat: No Symptoms Respiratory: No Symptoms Cardiac: Palpitations Abdominal/Gastrointestinal: No Symptoms, No Abdominal Pain, No Nausea, No Vomiting, No Diarrhea Genitourinary Symptoms: No Symptoms Musculoskeletal: No Symptoms Skin: No Symptoms Neurological: Dizziness, No Headache Psychological: Anxiety Endocrine: No Symptoms Hematologic/Lymphatic: No Symptoms Immunological/Allergic: No Symptoms All Other Systems: Reviewed and Negative - Past Medical History Pertinent Past Medical History: No Neurological History: No Pertinent History ENT History: No Pertinent History Cardiac History: Hypertension Respiratory History: No Pertinent History Endocrine Medical History: No Pertinent History Musculoskeletal History: Other GI Medical History: No Pertinent History History: No Pertinent History Psycho-Social History: Anxiety Female Reproductive Disorders: No Pertinent History Other Medical History: intermittent Sciatic pain - Past Surgical History Past Surgical History: Yes Neuro Surgical History: No Pertinent History Cardiac: No Pertinent History Respiratory: No Pertinent History Gastrointestinal: Cholecystectomy Genitourinary: No Pertinent History Musculoskeletal: No Pertinent History Female Surgical History: No Pertinent History Other Surgical History: pt states pain worsened after gallbladder out - Social History Smoking Status: Current every day smoker How long have you smoked: 1 Exposure to second hand smoke: Yes Drug Use: none Patient Lives Alone: No Significant Family History: no pertinent family hx - Female History Hx Last Menstrual Period: 03/09/2018 Hx Now: Yes Expected Date of Delivery: 12/14/18 - Nursing Vital Signs Nursing Vital Signs: Initial Vital Signs Pulse Rate 134 H 07/21/18 17:56 Respiratory Rate 18 07/21/18 17:56 Blood Pressure 141/89 07/21/18 17:56 O2 Sat by Pulse Oximetry 100 07/21/18 17:56 Pain Scale Pain Intensity 0 - Physical Exam General Appearance: mild distress, alert, anxiety Eye Exam: PERRL/EOMI, eyes nml inspection Ears, Nose, Throat Exam: normal ENT inspection, moist mucous membranes Neck Exam: normal inspection, non-tender, supple, full range of motion Respiratory Exam: normal breath sounds, lungs clear, airway intact, No chest tenderness, No respiratory distress Cardiovascular Exam: tachycardia Gastrointestinal/Abdomen Exam: soft, normal bowel sounds, No tenderness Pelvic Exam: not done Rectal Exam: not done Back Exam: normal inspection, normal range of motion, No CVA tenderness, No vertebral tenderness Extremity Exam: normal inspection, normal range of motion, pelvis stable Neurologic Exam: alert, oriented x 3, cooperative, 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 Skin Exam: normal color, warm, dry Lymphatic Exam: No adenopathy SpO2 Interpretation: normal SpO2: 100 O2 Delivery: Room Air - Course EKG Interpreted by Me: RATE (129), Sinus Tach, NORMAL AXIS, NORMAL QRS, Non- specific ST Changes Ordered Tests: Active Orders 24 hr Category Date Time Status EKG-ER Only STAT Care 07/21/18 18:56 Active IV Insertion STAT Care 07/21/18 17:58 Active CBC W DIFF Stat Lab 07/21/18 18:00 Completed CMP Stat Lab 07/21/18 17:58 Completed CULTURE,URINE Stat Lab 07/21/18 19:10 Received TROPONIN Q3H Lab 07/21/18 18:00 Completed TROPONIN Q3H Lab 07/21/18 22:00 Ordered UA W/RFX UR CULTURE Stat Lab 07/21/18 19:10 Completed Urine Triage Profile Stat Lab 07/21/18 19:10 Completed Medication Summary Discontinued Medications Generic Name Dose Route Start Last Admin Trade Name Freq PRN Reason Stop Dose Admin Cephalexin HCl 500 mg 07/21/18 20:27 Keflex 500 Mg PO 07/21/18 20:28 STAT ONE Potassium Bicarbonate 25 meq 07/21/18 20:13 K-Lyte 25 Meq PO 07/21/18 20:14 STAT ONE Potassium Bicarbonate Confirm 07/21/18 20:27 K-Lyte 25 Meq Administered 07/21/18 20:28 Dose 25 meq .ROUTE .STK-MED ONE Lab/Rad Data: Laboratory Result Diagrams 07/21/18 18:00 07/21/18 17:58 Laboratory Results 07/21/18 07/21/18 07/21/18 Range/Units 19:10 19:10 18:00 WBC (4.0-10.5) K/mm3 RBC (4.1-5.4) M/mm3 Hgb (12.0-16.0) gm/dl Hct (35-47) % MCV (78-100) fl MCH (26-32) pg MCHC (32-36) g/dl RDW (11.5-14.0) % Plt Count (150-450) K/mm3 MPV (6-9.5) fl Gran % (36.0-66.0) % Eos # (Auto) (0-0.5) Absolute Lymphs (auto) (1.0-4.6) Absolute Monos (auto) (0.0-1.3) Lymphocytes % (24.0-44.0) % Monocytes % (0.0-12.0) % Eosinophils % (0.00-5.0) % Basophils % (0.0-0.4) % Absolute Granulocytes (1.4-6.9) Basophils # (0-0.4) Sodium (137-145) mmol/L Potassium (3.5-5.1) mmol/L Chloride (98-107) mmol/L Carbon Dioxide (22-30) mmol/L Anion Gap (5-15) MEQ/L BUN (7-17) mg/dL Creatinine (0.52-1.04) mg/dL Estimated GFR ML/MIN Glucose (74-106) mg/dL Calcium (8.4-10.2) mg/dL Total Bilirubin (0.2-1.3) mg/dL AST (14-36) U/L ALT (0-35) U/L Alkaline Phosphatase (38-126) U/L Troponin I < 0.012 (0.000-0.034) ng/mL Serum Total Protein (6.3-8.2) g/dL Albumin (3.5-5.0) g/dL Urine Color JIMY (YELLOW) Urine Appearance CLOUDY (CLEAR) Urine pH 6.0 (5-6) Ur Specific [place] 1.016 (1.005-1.025) Urine Protein NEGATIVE (Negative) Urine Ketones NEGATIVE (NEGATIVE) Urine Blood NEGATIVE (0-5) [place]/ul Urine Nitrite NEGATIVE (NEGATIVE) Urine Bilirubin NEGATIVE (NEGATIVE) Urine Urobilinogen 2 (0-1) mg/dL Ur Leukocyte Esterase LARGE (NEGATIVE) Urine WBC (Auto) 26-50 (0-5) /HPF Urine RBC (Auto) 3-5 (0-2) /HPF U Hyaline Cast (Auto) 0-2 (0-2) /LPF U Epithel Cells (Auto) FEW (FEW) /HPF Urine Bacteria (Auto) RARE (NEGATIVE) /HPF Urine Mucus (Auto) MODERATE (NEGATIVE) /HPF Urine Culture Reflexed YES (NO) Urine Glucose NEGATIVE (NEGATIVE) mg/dL Urine Opiates Level NEGATIVE (NEGATIVE) Ur Methadone NEGATIVE (NEGATIVE) Urine Barbiturates NEGATIVE (NEGATIVE) Ur Phencyclidine (PCP) NEGATIVE (NEGATIVE) Urine Amphetamine NEGATIVE (NEGATIVE) U Benzodiazepine Level NEGATIVE (NEGATIVE) Urine Cocaine NEGATIVE (NEGATIVE) Urine Marijuana (THC) NEGATIVE (NEGATIVE) 06/05/19 06/05/19 Range/Units 18:00 17:58 WBC 10.4 (4.0-10.5) K/mm3 RBC 3.63 L (4.1-5.4) M/mm3 Hgb 10.1 L (12.0-16.0) gm/dl Hct 31.2 L (35-47) % MCV 86.0 (78-100) fl MCH 27.8 (26-32) pg MCHC 32.4 (32-36) g/dl RDW 16.1 H (11.5-14.0) % Plt Count 186 (150-450) K/mm3 MPV 11.6 H (6-9.5) fl Gran % 77.1 H (36.0-66.0) % Eos # (Auto) 0.15 (0-0.5) Absolute Lymphs (auto) 1.78 (1.0-4.6) Absolute Monos (auto) 0.45 (0.0-1.3) Lymphocytes % 17.1 L (24.0-44.0) % Monocytes % 4.3 (0.0-12.0) % Eosinophils % 1.4 (0.00-5.0) % Basophils % 0.1 (0.0-0.4) % Absolute Granulocytes 7.99 H (1.4-6.9) Basophils # 0.01 (0-0.4) Sodium 138 (137-145) mmol/L Potassium 3.3 L (3.5-5.1) mmol/L Chloride 103 (98-107) mmol/L Carbon Dioxide 23 (22-30) mmol/L Anion Gap 15.1 H (5-15) MEQ/L BUN 7 (7-17) mg/dL Creatinine 0.46 L (0.52-1.04) mg/dL Estimated GFR > 60.0 ML/MIN Glucose 103 (74-106) mg/dL Calcium 9.4 (8.4-10.2) mg/dL Total Bilirubin 0.20 (0.2-1.3) mg/dL AST 23 (14-36) U/L ALT 21 (0-35) U/L Alkaline Phosphatase 117 (38-126) U/L Troponin I (0.000-0.034) ng/mL Serum Total Protein 8.0 (6.3-8.2) g/dL Albumin 4.1 (3.5-5.0) g/dL Urine Color (YELLOW) Urine Appearance (CLEAR) Urine pH (5-6) Ur Specific [place] (1.005-1.025) Urine Protein (Negative) Urine Ketones (NEGATIVE) Urine Blood (0-5) [place]/ul Urine Nitrite (NEGATIVE) Urine Bilirubin (NEGATIVE) Urine Urobilinogen (0-1) mg/dL Ur Leukocyte Esterase (NEGATIVE) Urine WBC (Auto) (0-5) /HPF Urine RBC (Auto) (0-2) /HPF U Hyaline Cast (Auto) (0-2) /LPF U Epithel Cells (Auto) (FEW) /HPF Urine Bacteria (Auto) (NEGATIVE) /HPF Urine Mucus (Auto) (NEGATIVE) /HPF Urine Culture Reflexed (NO) Urine Glucose (NEGATIVE) mg/dL Urine Opiates Level (NEGATIVE) Ur Methadone (NEGATIVE) Urine Barbiturates (NEGATIVE) Ur Phencyclidine (PCP) (NEGATIVE) Urine Amphetamine (NEGATIVE) U Benzodiazepine Level (NEGATIVE) Urine Cocaine (NEGATIVE) Urine Marijuana (THC) (NEGATIVE) - Progress Progress: improved, re-examined Progress Note: 07/21/18 19:17 repeat 12 lead ekg at 1907 after pt calm and feeling better. hr 79, qrs wnl, normal axis, normal ekg. 07/21/18 19:34 pt states she is feeling much better. Counseled pt/family regarding: lab results, diagnosis, need for follow-up - Departure Departure Disposition: Home Clinical Impression: Tachycardia, Anxiety, UTI (urinary tract infection) during Condition: Stable Critical Care Time: No Referrals: DOCTOR,NO FAMILY [Primary Care Provider] - Additional Instructions: drink plenty of fluids. follow up with your [facility]ator [facility] tomorrow for further management Prescriptions: Cephalexin Mh 500 mg [Keflex 500 mg] 500 mg PO TID #21 capsule
[2018-07-21 19:19] VITALS: O2SAT 100
[2018-07-21 19:56] LABS: Amphetamine,Urine NEGATIVE (NEGATIVE); Barbiturate,Urine NEGATIVE (NEGATIVE); Benzodiazepine,Urine NEGATIVE (NEGATIVE); Cocaine,Urine NEGATIVE (NEGATIVE); Methadone,Urine NEGATIVE (NEGATIVE); Opiate,Urine NEGATIVE (NEGATIVE); PCP,Urine NEGATIVE (NEGATIVE); THC,Urine NEGATIVE (NEGATIVE)
[2018-07-21 20:05] LABS: Appearance CLOUDY (CLEAR); Bacteria RARE /HPF (NEGATIVE); Bilirubin NEGATIVE (NEGATIVE); Blood NEGATIVE Ery/ul (0-5); Epithelial Cells FEW /HPF (FEW); Glucose NEGATIVE (NEGATIVE); Hyaline Casts 0-2 /LPF (0-2); Ketones NEGATIVE (NEGATIVE); Leukocyte Esterase LARGE (NEGATIVE); Mucus MODERATE /HPF (NEGATIVE); Nitrite NEGATIVE (NEGATIVE); Protein,Urine Dip NEGATIVE (Negative); Specific Gravity 1.016 (1.005-1.025); Urobilinogen 2 mg/dL (0-1); WBC 26-50 /HPF (0-5)
[2018-07-21] MEDS ORDERED: K-LYTE 25 MEQ PO ONE (20:13)
[2018-07-21] MEDS ORDERED: KEFLEX 500 MG PO ONE (20:27)
[2018-07-21] MEDS ORDERED: K-LYTE 25 MEQ ONE (20:27)
[2018-07-21] MEDS ORDERED: KEFLEX 500 MG ONE (20:31)
[2018-07-21 20:52] VITALS: BP 108/69; PULSE 81
== END 2018-07-21 20:58 | disposition home or self-care (01) ==
LOC: ED 17:27
DX: O26.892 Other specified pregnancy related conditions, second trimester (principal); R00.0 Tachycardia, unspecified; F41.9 Anxiety disorder, unspecified; O23.42 Unspecified infection of urinary tract in pregnancy, second trimester; Z3A.19 19 weeks gestation of pregnancy; R42 Dizziness and giddiness
CPT/HCPCS: 36000; 36415; 80053; 80307; 81001; 84484; 85025; 87086; 93005; 99284; A9270-GY

== ENCOUNTER 2021-11-09 13:25 | Emergency (ER) | payer OTHER ==
--- NOTE | 2021-11-09 13:30 | ERPHSYRPT ---
- History of Present Illness Time Seen by Provider: 11/09/21 13:30 Source: patient Exam Limitations: no limitations Physician History: This is a 36-year-old white female who presents with increasing redness swelling and tenderness of the skin left lower abdominal wall. Patient thinks she had an insect bite to the site. By history and clinical findings this fits the picture of that. Patient is concerned because of the redness and swelling that is increased. Patient is allergic to sulfa and Toradol medications. She is on Suboxone and does not want any narcotic pain medicine. She has had no fevers. There is been no drainage or abscess formation from the site. Timing/Duration: yesterday Quality: painful Severity: mild (To moderate) Location: other Possible Causes: insect bite Associated Symptoms: denies symptoms Allergies/Adverse Reactions: Sulfa (Sulfonamide Antibiotics) Allergy (Intermediate, Verified 11/09/21 13:34) Swelling sulfamethoxazole [From Bactrim] Allergy (Verified 11/09/21 13:34) trimethoprim [From Bactrim] Allergy (Verified 11/09/21 13:34) toradol Adverse Reaction (Intermediate, Uncoded 11/09/21 13:34) Home Medications: Buprenorphine HCl/Naloxone HCl [Suboxone 8 mg-2 mg Tablet Sl] 2 each SL DAILY 09/14/17 [History] Hx Tetanus, Diphtheria Vaccination/Date Given: Yes Hx Influenza Vaccination/Date Given: No Hx Pneumococcal Vaccination/Date Given: No Travel Risk - International Travel Have you traveled outside of the country in past 3 weeks: No - Coronavirus Screening Are you exhibiting any of the following symptoms?: No Close contact with a COVID-19 positive Pt in past 14-21 Days: No - Review of Systems Constitutional: No Symptoms Eyes: No Symptoms Ears, Nose, & Throat: No Symptoms Respiratory: No Symptoms Cardiac: No Symptoms Abdominal/Gastrointestinal: No Symptoms Genitourinary Symptoms: No Symptoms Musculoskeletal: No Symptoms Skin: Cellulitis (Skin of left lower quadrant ABD wall) Neurological: No Symptoms Psychological: No Symptoms Endocrine: No Symptoms Hematologic/Lymphatic: No Symptoms Immunological/Allergic: No Symptoms All Other Systems: Reviewed and Negative - Past Medical History Pertinent Past Medical History: No Neurological History: No Pertinent History ENT History: No Pertinent History Cardiac History: Hypertension Respiratory History: No Pertinent History Endocrine Medical History: No Pertinent History Musculoskeletal History: Other GI Medical History: No Pertinent History History: No Pertinent History Psycho-Social History: Anxiety Female Reproductive Disorders: No Pertinent History Other Medical History: intermittent Sciatic pain - Past Surgical History Past Surgical History: Yes Neuro Surgical History: No Pertinent History Cardiac: No Pertinent History Respiratory: No Pertinent History Gastrointestinal: Cholecystectomy Genitourinary: No Pertinent History Musculoskeletal: No Pertinent History Female Surgical History: No Pertinent History Other Surgical History: pt states pain worsened after gallbladder out - Social History Smoking Status: Current every day smoker How long have you smoked: 1 Exposure to second hand smoke: Yes Drug Use: none Patient Lives Alone: No Significant Family History: no pertinent family hx - Nursing Vital Signs Nursing Vital Signs: Initial Vital Signs Temperature 97.3 F 11/09/21 13:37 Pulse Rate 88 11/09/21 13:37 Respiratory Rate 18 11/09/21 13:37 Blood Pressure 130/89 11/09/21 13:37 O2 Sat by Pulse Oximetry 96 11/09/21 13:37 Pain Scale Pain Intensity 0 - Physical Exam General Appearance: no apparent distress, alert, anxiety Eye Exam: PERRL/EOMI, eyes nml inspection Ears, Nose, Throat Exam: normal ENT inspection, moist mucous membranes Neck Exam: normal inspection, non-tender, supple, full range of motion Respiratory Exam: airway intact, No chest tenderness, No respiratory distress Gastrointestinal/Abdomen Exam: tenderness (Mild to palpation on the area of cellulitis of the skin overlying left lower quadrant of the abdominal wall), No guarding, No rebound Pelvic Exam: not done Rectal Exam: not done Back Exam: normal inspection, normal range of motion, No CVA tenderness, No vertebral tenderness Extremity Exam: normal inspection, normal range of motion, pelvis stable Neurologic Exam: alert, oriented x 3, cooperative, 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, normal mood/affect, nml cerebellar function, nml station & gait, sensation nml Skin Exam: other (Cellulitissee above) Lymphatic Exam: No adenopathy SpO2 Interpretation: normal O2 Delivery: Room Air - Course Nursing assessment & vital signs reviewed: Yes - Progress Progress: unchanged Counseled pt/family regarding: diagnosis, need for follow-up - Departure Departure Disposition: Home Clinical Impression: Cellulitis, abdominal wall Condition: Stable Critical Care Time: No Referrals: DOCTOR,NO FAMILY [Primary Care Provider] - Follow up/PCP as directed Additional Instructions: Keep area clean daily with soap and water. Do not apply lotions or ointments or creams. Use Tylenol for pain control. Return to the emergency department if symptoms worsen. Follow-up with your primary care physician if symptoms persist despite antibiotic therapy. Prescriptions: Doxycycline Hyclate 100 mg [Vibramycin 100 MG] 100 mg PO BID #14 tab
[2021-11-09 13:41] VITALS: BP 130/89; PULSE 88; O2SAT 96
[2021-11-09] MEDS ORDERED: Vibramycin 100 MG PO ONE (14:06)
[2021-11-09] MEDS ORDERED: Rocephin 1000 MG INJ IM ONE (14:06)
[2021-11-09] MEDS ORDERED: Vibramycin 100 MG ONE (14:22)
[2021-11-09] MEDS ORDERED: XYLOCAINE 1% HCL 20 ML MDV ONE (14:22)
[2021-11-09] MEDS ORDERED: Rocephin 1000 MG INJ ONE (14:22)
== END 2021-11-09 14:46 | disposition home or self-care (01) ==
LOC: ED 13:25
DX: L03.311 Cellulitis of abdominal wall (principal); I10 Essential (primary) hypertension; Z79.891 Long term (current) use of opiate analgesic; Z72.0 Tobacco use
CPT/HCPCS: 96372; 99283; J0696; A9270-GY

== ENCOUNTER 2022-09-18 08:34 | Emergency (ER) | payer SELFPAY ==
--- NOTE | 2022-09-18 08:52 | ERPHSYRPT ---
- History of Present Illness Time Seen by Provider: 09/18/22 08:52 Source: patient Exam Limitations: no limitations Patient Subjective Stated Complaint: Pt states "For the past three days I have been waking up with a kink in my back and this morning it took about 15 minutes to go away." Triage Nursing Assessment: Pt presented alert and oriented x 3, skin pwd. PT ambulates with an upright steady gait, able to speak in clear full sentences. PT resting comfortably on the bed. Physician History: This is an obese white female patient has a history of sciatica (recurrent), hypertension and anxiety. For the last 3 mornings patient has woken up with back pain that is taking increasing amount of time to get the "kinks" out. This morning she arrives with improvement in her pain but her pain is still present. She did not fall or suffer any acute trauma. She stated that it took 15 minutes to get to a point where she could move but she still senses pain. She has no urinary incontinence. She has no bowel incontinence. She has no numbness in her feet. Timing/Duration: day(s) (3), worse Method of Injury: other (No fall or injury) Back Pain Location: lumbar spine, paraspinous muscles Severity of Pain-Max: moderate Severity of Pain-Current: mild Modifying Factors: Improves With: movement Associated Symptoms: lower back pain, No urinary incontinence, No loss of bowel control, No numbness in legs/feet Previous symptoms: same symptoms as today, no recent treatment Allergies/Adverse Reactions: Sulfa (Sulfonamide Antibiotics) Allergy (Intermediate, Verified 11/09/21 13:34) Swelling sulfamethoxazole [From Bactrim] Allergy (Verified 11/09/21 13:34) trimethoprim [From Bactrim] Allergy (Verified 11/09/21 13:34) toradol Adverse Reaction (Intermediate, Uncoded 11/09/21 13:34) Home Medications: hydrOXYzine HCL [Hydroxyzine HCl] 25 mg PO DAILY 09/18/22 [History] Hx Tetanus, Diphtheria Vaccination/Date Given: No Hx Influenza Vaccination/Date Given: No Hx Pneumococcal Vaccination/Date Given: No Immunizations Up to Date: No Travel Risk - International Travel Have you traveled outside of the country in past 3 weeks: No - Coronavirus Screening Are you exhibiting any of the following symptoms?: No Close contact with a COVID-19 positive Pt in past 14-21 Days: No - Vaccine Status Have you recieved a Covid-19 vaccination: Yes 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: [employer] - Vaccination Dates Date of 2cond Vaccination (if applicable): 2020 - Review of Systems Constitutional: No Symptoms Eyes: No Symptoms Ears, Nose, & Throat: No Symptoms Respiratory: No Symptoms Cardiac: No Symptoms Abdominal/Gastrointestinal: No Symptoms Genitourinary Symptoms: No Symptoms Musculoskeletal: Back Pain Skin: No Symptoms Neurological: No Symptoms Psychological: No Symptoms Endocrine: No Symptoms Hematologic/Lymphatic: No Symptoms Immunological/Allergic: No Symptoms All Other Systems: Reviewed and Negative - Past Medical History Pertinent Past Medical History: Yes Neurological History: No Pertinent History ENT History: No Pertinent History Cardiac History: Hypertension Respiratory History: No Pertinent History Endocrine Medical History: No Pertinent History Musculoskeletal History: Other GI Medical History: No Pertinent History History: No Pertinent History Psycho-Social History: Anxiety Female Reproductive Disorders: No Pertinent History Other Medical History: intermittent Sciatic pain - Past Surgical History Past Surgical History: Yes Neuro Surgical History: No Pertinent History Cardiac: No Pertinent History Respiratory: No Pertinent History Gastrointestinal: Cholecystectomy Genitourinary: No Pertinent History Musculoskeletal: No Pertinent History Female Surgical History: No Pertinent History Other Surgical History: pt states pain worsened after gallbladder out. emergency c section - Social History Smoking Status: Current every day smoker How long have you smoked: 1 Exposure to second hand smoke: Yes Drug Use: none Patient Lives Alone: No Significant Family History: no pertinent family hx - Female History Hx Last Menstrual Period: 09/18/2022 Hx Now: No - Nursing Vital Signs Nursing Vital Signs: Pain Scale Pain Intensity [Lower 6 Posterior Back] Pain Intensity 6 - Physical Exam General Appearance: no apparent distress, alert, anxiety, obese Eye Exam: PERRL/EOMI, eyes nml inspection Ears, Nose, Throat Exam: normal ENT inspection, moist mucous membranes Neck Exam: normal inspection, non-tender, supple, full range of motion Respiratory Exam: airway intact, No chest tenderness, No respiratory distress Gastrointestinal Exam: No tenderness Pelvic Exam: not done Rectal Exam: not done Back Exam: normal inspection, normal range of motion, vertebral tenderness (Lumbar level), muscle spasm Extremity Exam: normal inspection, normal range of motion, pelvis stable Neurologic Exam: alert, oriented x 3, cooperative, 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 The level complexity in the work-up performed is based on review of the patient's past medical history, review of the patient's medication list, review the patient drug allergy list, history of present illness and physical findings on examination. The patient does not require laboratory radiographic studies. She has recurrent sciatica and recurrent acute exacerbation of chronic back pain. We will send a prescription of prednisone and Norflex to her pharmacy. She is to follow-up with her primary care provider for further evaluation management. Counseled pt/family regarding: diagnosis, need for follow-up Medical Desision Making - Diagnostic Testing Diagnostic test were ordered, analyzed, and reviewed by me: No - Risk of complications The pt has a mod risk of morbidity or mortality based on: Need for prescription drug management - Departure Departure Disposition: Home Clinical Impression: Sciatica, Acute exacerbation of chronic low back pain Condition: Stable Critical Care Time: No Additional Instructions: Take your medications as prescribed. Call your primary care provider today to make arrangements for follow-up appointment in 3 to 5 days Prescriptions: Prednisone 10 mg [Deltasone 10 mg] 10 mg PO TID #12 tablet Orphenadrine Citrate 100 mg [Norflex 100 MG Tablet] 100 mg PO BID #10 tab
[2022-09-18 09:34] VITALS: BP 122/60; PULSE 78; RESP 18; O2SAT 98
== END 2022-09-18 09:32 | disposition home or self-care (01) ==
LOC: ED 08:34
DX: G89.29 Other chronic pain (principal); M54.50 Low back pain, unspecified; M54.30 Sciatica, unspecified side; I10 Essential (primary) hypertension; Z79.52 Long term (current) use of systemic steroids; Z79.899 Other long term (current) drug therapy; Z72.0 Tobacco use
CPT/HCPCS: 99281

== ENCOUNTER 2023-06-11 15:25 | Emergency (ER) | payer SELFPAY ==
[2023-06-11 15:41] VITALS: RESP 20
[2023-06-11 15:48] LABS: HCG URINE TEST POSITIVE (NEGATIVE)
[2023-06-11 16:04] LABS: AMNISURE TEST RESULTS NEGATIVE (NEGATIVE)
[2023-06-11 16:33] VITALS: O2SAT 98
--- NOTE | 2023-06-11 16:56 | ERPHSYRPT ---
- History of Present Illness Time Seen by Provider: 06/11/23 15:45 Source: patient Exam Limitations: no limitations Patient Subjective Stated Complaint: PT states "I did not know I was and my water broke this morning at 5 am." Triage Nursing Assessment: Pt presented alert and oriented X 3, skin pwd. Pt ambulates with an upright steady gait, able to speak in clear full sentenecs. Physician History: Patient is a 37-year-old 9 para 5 AB 3 who did not know she was although she has had no period for some time.She feels that she had a rupture of her membranes and was leaking fluid and passed her mucous plug this morning.She did perform a home test this morning which was positive Timing/Duration: today Activites at Onset: none Allergies/Adverse Reactions: Sulfa (Sulfonamide Antibiotics) Allergy (Intermediate, Verified 11/09/21 13:34) Swelling sulfamethoxazole [From Bactrim] Allergy (Verified 11/09/21 13:34) trimethoprim [From Bactrim] Allergy (Verified 11/09/21 13:34) toradol Adverse Reaction (Intermediate, Uncoded 11/09/21 13:34) Home Medications: hydrOXYzine HCL [Hydroxyzine HCl] 25 mg PO DAILY 09/18/22 [History] Buprenorphine HCl/Naloxone HCl [Buprenorphin-Naloxon 8-2 mg Sl] 1 each SL 06/11/23 [History] Hx Tetanus, Diphtheria Vaccination/Date Given: No Hx Influenza Vaccination/Date Given: No Hx Pneumococcal Vaccination/Date Given: No Travel Risk - International Travel Have you traveled outside of the country in past 3 weeks: No - Emerging Infectious Disease Are you exhibiting symptoms associated with any current EIDs: No - Review of Systems Constitutional: No Fever, No Chills Eyes: No Symptoms Ears, Nose, & Throat: No Symptoms Respiratory: No Cough, No Dyspnea Cardiac: No Chest Pain, No Edema, No Syncope Abdominal/Gastrointestinal: No Abdominal Pain, No Nausea, No Vomiting, No Diarrhea Genitourinary Symptoms: No Dysuria Musculoskeletal: No Back Pain, No Neck Pain Skin: No Rash Neurological: No Dizziness, No Focal Weakness, No Sensory Changes Psychological: No Symptoms Endocrine: No Symptoms All Other Systems: Reviewed and Negative - Past Medical History Pertinent Past Medical History: Yes Neurological History: No Pertinent History ENT History: No Pertinent History Cardiac History: Hypertension Respiratory History: No Pertinent History Endocrine Medical History: No Pertinent History Musculoskeletal History: Other GI Medical History: No Pertinent History History: No Pertinent History Psycho-Social History: Anxiety Female Reproductive Disorders: No Pertinent History Other Medical History: intermittent Sciatic pain - Past Surgical History Past Surgical History: Yes Neuro Surgical History: No Pertinent History Cardiac: No Pertinent History Respiratory: No Pertinent History Gastrointestinal: Cholecystectomy Genitourinary: No Pertinent History Musculoskeletal: No Pertinent History Female Surgical History: No Pertinent History Other Surgical History: pt states pain worsened after gallbladder out. emergency c section Significant Family History: no pertinent family hx - Female History Hx Last Menstrual Period: 01/16/2025 Hx Now: Yes (unknown) Gestational Age: . - Social History Smoking Status: Current every day smoker How long have you smoked: 1 Exposure to second hand smoke: Yes Drug Use: none Patient Lives Alone: No - Nursing Vital Signs Nursing Vital Signs: Initial Vital Signs Temperature 97.2 F 06/11/23 15:36 Pulse Rate 86 06/11/23 15:36 Respiratory Rate 20 06/11/23 15:36 Blood Pressure 156/96 06/11/23 15:36 O2 Sat by Pulse Oximetry 99 06/11/23 15:36 Pain Scale Pain Intensity 0 - Physical Exam General Appearance: no apparent distress Eye Exam: PERRL/EOMI Ears, Nose, Throat Exam: normal ENT inspection, TMs normal, pharynx normal, moist mucous membranes Neck Exam: normal inspection, non-tender, supple, full range of motion Respiratory Exam: normal breath sounds, lungs clear, No respiratory distress Cardiovascular Exam: regular rate/rhythm, normal heart sounds, normal peripheral pulses Gastrointestinal/Abdomen Exam: soft, No tenderness, No mass Pelvic Exam: not done (With a suspected rupture of membranes we decided not to do an intravaginal exam.) Rectal Exam: deferred Back Exam: normal inspection, normal range of motion Extremity Exam: normal inspection, normal range of motion, pelvis stable Neurologic Exam: alert, oriented x 3, cooperative, director 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-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 as tested, normal mood/affect, sensation nml, No motor deficits Skin Exam: normal color, warm, dry SpO2 Interpretation: normal SpO2: 98 O2 Delivery: Room Air - Radiology Ultrasound Exam OB Ultrasound: Other (Ultrasound shows a intrauterine viable at 19 weeks and 4 days gestation cervix appears long and closed) Ordered Tests: Active Orders 24 hr Category Date Time Status OB >14 WKS 1st GESTATION [US] Stat Exams 06/11/23 15:42 Completed AMNISURE RUPTURE OF MEMBRANES Stat Lab 06/11/23 Completed HCG QUALITATIVE, URINE Stat Lab 06/11/23 Completed HCG, Quantitative (Inhouse) Stat Lab 06/11/23 15:50 Completed Lab/Rad Data: Laboratory Results 06/11/23 06/11/23 Range/Units Unknown 15:50 Beta HCG, Quant 92455 mIU/ml Urine HCG, Qual POSITIVE (NEGATIVE) - Progress Progress: improved Air Movement: good Blood Culture(s) Obtained: No Antibiotics given: No Medical Desision Making - Diagnostic Testing Diagnostic test were ordered, analyzed, and reviewed by me: Yes Radiological Interpretation: Reviewed by me - Risk of complications Minimal Risk: Minimal risk of morbidity - Departure Departure Disposition: Home Clinical Impression: 19 weeks gestation of Condition: Stable Critical Care Time: No Referrals: DOCTOR,NO FAMILY [Primary Care Provider] - Follow up/PCP as directed
--- NOTE | 2023-06-11 16:59 | XRAY ---
Indication: [place]. Loss of mucous plug. Two-dimensional limited OB ultrasound performed. Comparison: None Single intrauterine currently in breech presentation. heart rate 151 BPM. Close cervix. Posterior placenta without abruption/previa. BPD measures 4.47 cm corresponding to 19 weeks 4 days. HC measures 16.07 cm corresponding to 18 weeks 6 days. AC measures 15.71 cm corresponding to 20 weeks 6 days. FL measures 3.01 cm corresponding to 19 weeks 2 days. BILLY is 8.4 cm. Impression: Single viable intrauterine with mean gestational age 19 weeks 5 days. Expected date confinement October 31, 2023. Nothing acute.
[2023-06-11 17:16] VITALS: BP 137/78; PULSE 81; TEMP 97.8
== END 2023-06-11 17:28 | disposition home or self-care (01) ==
LOC: ED 15:25
DX: O09.522 Supervision of elderly multigravida, second trimester (principal); Z3A.19 19 weeks gestation of pregnancy; I10 Essential (primary) hypertension; Z79.891 Long term (current) use of opiate analgesic; Z79.899 Other long term (current) drug therapy; Z72.0 Tobacco use
CPT/HCPCS: 36415; 76805; 81025; 84112; 84702; 99283

== ENCOUNTER 2024-04-20 11:53 | Emergency (ER) | payer BC, OTHER ==
[2024-04-20 12:08] VITALS: TEMP 98.5
[2024-04-20 13:06] VITALS: BP 163/107; PULSE 83; RESP 16; O2SAT 98
[2024-04-20] MEDS ORDERED: Ativan 1 MG ONE (13:07)
[2024-04-20] MEDS ORDERED: TORAdol 30 mg Injection ONE (13:07)
[2024-04-20] MEDS: Ativan 1 MG PO ONE (13:09)
[2024-04-20] MEDS: TORAdol 30 mg Injection IM ONE (13:10)
--- NOTE | 2024-04-20 13:25 | ERPHSYRPT ---
- History of Present Illness Time Seen by Provider: 04/20/24 12:08 Source: patient Exam Limitations: no limitations Patient Subjective Stated Complaint: reports that her left rastafari is pulsating, she feels the blood flow but no pain, left arm heaviness and nausea Triage Nursing Assessment: Pt was brought to the ER by her father, hypertensive, denies pain, pulses normal, skin n/w/d, denies chest pain, denies difficulty breathing, nausea, doesn't appear to be in any distress Physician History: 38 years old female with history of anxiety, periodontal disease, dental caries, multiple broken teeth presented in the ER with complains of left rastafari area heaviness, feeling pulsating since morning without any vision changes,. Patient reports it is a discomfort but no pain. Has more pain in the maxillary area. No fever or chills reported. Patient is in tears and reports "I am a nervous wreck and needs to calm down myself". Denies any suicidal or homicidal ideations. No substance abuse. Allergies/Adverse Reactions: Sulfa (Sulfonamide Antibiotics) Allergy (Intermediate, Verified 11/09/21 13:34) Swelling sulfamethoxazole [From Bactrim] Allergy (Verified 11/09/21 13:34) trimethoprim [From Bactrim] Allergy (Verified 11/09/21 13:34) Home Medications: Buprenorphine HCl/Naloxone HCl [Suboxone 8 mg-2 mg Sl Film] 1 film SL BID 04/20/24 [History] Hx Tetanus, Diphtheria Vaccination/Date Given: No Hx Influenza Vaccination/Date Given: No Hx Pneumococcal Vaccination/Date Given: No Travel Risk - International Travel Have you traveled outside of the country in past 3 weeks: No - Emerging Infectious Disease Are you exhibiting symptoms associated with any current EIDs: No - Review of Systems Constitutional: No Symptoms Eyes: No Symptoms Ears, Nose, & Throat: Throat Swelling Respiratory: No Symptoms Cardiac: No Symptoms Abdominal/Gastrointestinal: No Symptoms Musculoskeletal: No Symptoms Skin: No Symptoms Neurological: No Symptoms - Past Medical History Pertinent Past Medical History: Yes Neurological History: No Pertinent History ENT History: No Pertinent History Cardiac History: Hypertension Respiratory History: No Pertinent History Endocrine Medical History: No Pertinent History Musculoskeletal History: Other GI Medical History: No Pertinent History History: No Pertinent History Psycho-Social History: Anxiety Female Reproductive Disorders: No Pertinent History Other Medical History: intermittent Sciatic pain - Past Surgical History Past Surgical History: Yes Neuro Surgical History: No Pertinent History Cardiac: No Pertinent History Respiratory: No Pertinent History Gastrointestinal: Cholecystectomy Genitourinary: No Pertinent History Musculoskeletal: No Pertinent History Female Surgical History: No Pertinent History Other Surgical History: pt states pain worsened after gallbladder out. emergency c section Significant Family History: no pertinent family hx - Female History Hx Last Menstrual Period: mid oct Hx Now: No (tubal) - Social History Smoking Status: Current every day smoker How long have you smoked: vapes Exposure to second hand smoke: No Drug Use: none - Social Determinants of Health Will the patient participate in the screening: Yes Do you worry about a steady place to live?: No Do you have any problems with any of the following?: No known problems In the past 12 months,have you had to go without utilities?: No Transportation Issues: No Has anyone in your support network made you feel unsafe?: No Have you or anyone in your house had to go w/o enough food: No - Nursing Vital Signs Nursing Vital Signs: Initial Vital Signs Temperature 98.5 F 04/20/24 12:00 Pulse Rate 92 H 04/20/24 12:00 Respiratory Rate 14 04/20/24 12:00 Blood Pressure 150/100 04/20/24 12:00 O2 Sat by Pulse Oximetry 98 04/20/24 12:00 Pain Scale Pain Intensity 0 - Physical Exam General Appearance: no apparent distress, alert Eye Exam: bilateral eye: normal inspection, PERRL, EOMI Ear Exam: bilateral ear: auricle normal, canal normal, TM normal Nasal Exam: normal inspection Throat Exam: normal, pharynx normal, dental tenderness, maxillary swelling (With some tenderness), moist mucus membranes Neck Exam: normal inspection, non-tender, supple, full range of motion Cardiovascular/Respiratory Exam: normal breath sounds, regular rate/rhythm Neurologic Exam: alert, oriented x 3, cooperative, 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 as tested SpO2 Interpretation: normal SpO2: 98 O2 Delivery: Room Air Ordered Tests: Medication Summary Discontinued Medications Generic Name Dose Route Start Last Admin Trade Name Freq PRN Reason Stop Dose Admin Ketorolac Tromethamine 30 mg 04/20/24 12:21 04/20/24 13:10 Ketorolac Tromethamine 30 Mg/Ml Inj IM 04/20/24 12:22 Not Given STAT ONE Ketorolac Tromethamine Confirm 04/20/24 13:07 Ketorolac Tromethamine 30 Mg/Ml Inj Administered 04/20/24 13:08 Dose 30 mg .ROUTE .STK-MED ONE Lorazepam 1 mg 04/20/24 12:21 04/20/24 13:09 Lorazepam 1 Mg Tablet PO 04/20/24 12:22 1 mg STAT ONE Administration Lorazepam Confirm 04/20/24 13:07 Lorazepam 1 Mg Tablet Administered 04/20/24 13:08 Dose 1 mg .ROUTE .STK-MED ONE - Progress Progress: improved Progress Note: 04/20/24 13:22 38 years old is evaluated in the ER for worsening anxiety over some discomfort in the maxillary area and left rastafari. No vision changes. Nonfocal neuroexam. No difficulty movements of eyeball. Patient does have periodontal disease with broken teeth and some gingival swelling and maxillary tenderness. I have given her oral Ativan, patient is feeling much improved. She declined Toradol. I would start her on Augmentin and recommended taking Tylenol ibuprofen as needed. Recommended outpatient dental follow-up. Discussed signs symptoms of worsening needing return to ER which she seems understanding Counseled pt/family regarding: diagnosis, need for follow-up Medical Desision Making - Risk of complications Low Risk: Low risk of morbidity from additional dx testing or treatment The pt has a mod risk of morbidity or mortality based on: Need for prescription drug management - Departure Departure Disposition: Home Clinical Impression: Dental infection, Anxiety Condition: Stable Critical Care Time: No Referrals: RASHI WILLETT DO [Primary Care Provider] - Follow up with PCP 1 day Instructions: Tooth Abscess ED Additional Instructions: Take Tylenol/ibuprofen as needed. Follow-up with primary care and dentist for reevaluation. Return to ER for worsening of symptoms. Prescriptions: Ibuprofen 600 mg PO Q6HPRN PRN 10 Days #20 tablet PRN Reason: Pain Amox Tr/Potass Clav. 875 mg [Augmentin 875-125 Tablet] 875 mg PO BID #14 tablet
== END 2024-04-20 13:46 | disposition home or self-care (01) ==
LOC: ED 11:53
DX: K04.7 Periapical abscess without sinus (principal); F41.9 Anxiety disorder, unspecified; R51.9 Headache, unspecified; I10 Essential (primary) hypertension; Z79.891 Long term (current) use of opiate analgesic; Z79.899 Other long term (current) drug therapy; Z72.0 Tobacco use
CPT/HCPCS: 99281; 99283; J1885; A9270-GY